=== PATIENT | female | born 1950 | race Caucasian/White ===

== ENCOUNTER 2024-05-25 13:35 | Emergency (ER) | payer MEDICARE, SELFPAY ==
[2024-05-25 13:54] VITALS: BP 131/65; PULSE 81; RESP 18; TEMP 36.9; O2SAT 98; BMI 24.9
--- NOTE | 2024-05-25 14:34 | PC.NURSE ---
Approx 20 mins ago, I went in the room to see the patient. Pt was not there. I was just informed by EVS that she asked Maria A the door to leave. Pt left without being seen. Other patients in the same room 3 confirmed that she got up and left after asking housekeeping
--- NOTE | 2024-05-26 10:37 | ED.RECABL ---
HPI - Recheck/Abnormal Lab/Rx <Fartun Alves PA-C - Last Filed: 05/26/24 11:17> General Chief Complaint: Recheck/Abnormal Lab/Rx Stated Complaint: sent by pcp, poss co2 poisoning Time Seen by Provider: 05/25/24 14:45 Source: patient Mode of arrival: Ambulatory Related Data Allergies Allergy/AdvReac Type Severity Reaction Status Date / Time No Known Drug Allergies Allergy Verified 05/25/24 13:59 <Elvin Ureña MD - Last Filed: 05/26/24 18:51> History of Present Illness HPI narrative: Left without being seen by provider Patient History <Fartun Alves PA-C - Last Filed: 05/26/24 11:17> Social History Smoking Status: Former smoker Smoking Status: Former smoker Substance Use Type: does not use Exam <Fartun Alves PA-C - Last Filed: 05/26/24 11:17> Initial Vital Signs Initial Vital Signs: Vital Signs Temperature 98.5 F 05/25/24 13:54 Pulse Rate 81 05/25/24 13:54 Respiratory Rate 18 05/25/24 13:54 Blood Pressure 131/65 05/25/24 13:54 Pulse Oximetry 98 05/25/24 13:54 Oxygen Delivery Method Room Air 05/25/24 13:54 <Elvin Ureña MD - Last Filed: 05/26/24 18:51> Initial Vital Signs Initial Vital Signs: Vital Signs Temperature 98.5 F 05/25/24 13:54 Pulse Rate 81 05/25/24 13:54 Respiratory Rate 18 05/25/24 13:54 Blood Pressure 131/65 05/25/24 13:54 Pulse Oximetry 98 05/25/24 13:54 Oxygen Delivery Method Room Air 05/25/24 13:54 Discharge Plan Departure Patient Disposition: Left Without Being Seen Clinical Impression: Patient left before evaluation by physician, Patient left after triage
== END 2024-05-25 15:06 | disposition left against medical advice (07) ==
PROVIDERS: Emergency Provider Physician Assistant; PCP Internal Medicine
DX: Z53.21 Procedure and treatment not carried out due to patient leaving prior to being seen by health care provider (principal)
CPT/HCPCS: 99281